=== PATIENT | female | born 1975 | race Caucasian/White ===

== ENCOUNTER 2017-01-27 10:49 | Emergency (ER) | payer BC, OTHER ==
[2017-01-27] MEDS ORDERED: OXYCODONE-ACETAMINOPHEN 5-325 MG TABLET PO ONE (11:03)
[2017-01-27] MEDS ORDERED: PROMETHAZINE HCL 25 MG TABLET PO ONE (11:03)
--- NOTE | 2017-01-27 11:06 | ER Document Report ---
ED Medical Screen (RME) - General Chief Complaint: Headache Stated Complaint: HEAD PAIN Notes: Patient is complaining of a severe headache that began about 5:30 PM last evening. She says that she was exercising when the pain began suddenly. Her headache is all over her entire head. It eased off some during the early night hours but came back around 3 AM and has been severe ever since. She's been nauseated but not vomiting. No fevers. No loss of consciousness or neurologic symptoms. Patient is tearful throughout the initial triage. PMH: Hypothyroidism. No history of headaches. TRAVEL OUTSIDE OF THE [place] IN LAST 30 DAYS: No - Related Data Allergies/Adverse Reactions: No Known Allergies Allergy (Verified 01/27/17 10:53) Past Medical History Endocrine Medical History: Reports: Hx Hypothyroidism Renal/ Medical History: Denies: Hx Peritoneal Dialysis Physical Exam - Vital signs Vitals: Temp Pulse BP Pulse Ox 98.3 F 78 150/86 H 100 01/27/17 10:54 01/27/17 10:54 01/27/17 10:54 01/27/17 10:54 Course - Vital Signs Vital signs: Temp Pulse Resp BP Pulse Ox 98.3 F 78 150/86 H 100 01/27/17 10:54 01/27/17 10:54 01/27/17 10:54 01/27/17 10:54
[2017-01-27] MEDS ORDERED: NORMAL SALINE 1000 ML 1,000 ML IV ONE ×2 (11:14→13:09)
[2017-01-27 11:51] LABS: ABSOLUTE LYMPHOCYTES (AUTO) 1.6 10^3/uL (0.5-4.7); ABSOLUTE MONOCYTES (AUTO) 0.3 10^3/uL (0.1-1.4); ABSOLUTE NEUT (AUTO) 3.2 10^3/uL (1.7-8.2); BASOPHILS % (AUTO) 0.4 % (0-2); EOSINOPHILS % (AUTO) 0.6 % (0-6); HEMOGLOBIN 13.1 g/dL (12.0-15.5); HGB HCT DIFFERENCE 0.3; LYMPHOCYTES % (AUTO) 30.4 % (13-45); MEAN CORPUSCULAR HEMOGLOBIN 27.6 pg (27.0-33.4); MEAN CORPUSCULAR HGB CONC 33.7 g/dL (32.0-36.0); MEAN CORPUSCULAR VOLUME 82 fl (80-97); MONOCYTES % (AUTO) 6.7 % (3-13); RED BLOOD COUNT 4.76 10^6/uL (3.72-5.28); RED CELL DISTRIBUTION WIDTH 14.7 % (11.5-14.0); SEGMENTED NEUTROPHILS % (AUTO) 61.9 % (42-78); WHITE BLOOD COUNT 5.2 10^3/uL (4.0-10.5)
[2017-01-27] MEDS ORDERED: LIDOCAINE 1% INJ-PF (10 MG/ML) 30 ML SDV INJ ONE (11:54)
[2017-01-27 11:59] LABS: PROTHROMBIN TIME 12.3 SEC (11.4-15.4)
[2017-01-27 12:00] LABS: PARTIAL THROMBOPLASTIN TIME 28.4 SEC (23.5-35.8)
[2017-01-27] MEDS ORDERED: ONDANSETRON HCL INJ/PF 4 MG/2 ML SDV IV ONE (12:09)
[2017-01-27] MEDS ORDERED: PROCHLORPERAZINE EDISYLATE INJ 10 MG/2 ML VIAL IV ONE (12:09)
[2017-01-27 12:15] LABS: ANION GAP 15 (5-19); BLOOD UREA NITROGEN 15 mg/dL (7-20); CALCIUM 9.4 mg/dL (8.4-10.2); CARBON DIOXIDE 23 mmol/L (22-30); CHLORIDE 106 mmol/L (98-107); CREATININE RESULT 0.69 mg/dL (0.52-1.25); GLUCOSE 97 mg/dL (75-110); POTASSIUM 4.1 mmol/L (3.6-5.0); SODIUM 143.8 mmol/L (137-145)
[2017-01-27 13:51] LABS: GLUCOSE,CSF 60 mg/dL (40-70)
[2017-01-27 14:09] LABS: APPEARANCE ALL TUBES CLOUDY
[2017-01-27 14:10] LABS: RBC DILUENT USED SALINE; RBC DILUTION FACTOR 51; RBC SIDE 1 194; RBC SIDE 2 186; TOTAL RBC SQUARES COUNTED 25
[2017-01-27 14:11] LABS: WHITE BLOOD CELL,CSF 292 /uL (0-5)
[2017-01-27 14:33] LABS: APPEARANCE ALL TUBES CLOUDY; RBC SIDE 1 115
[2017-01-27 14:34] LABS: RBC DILUENT USED SALINE; RBC DILUTION FACTOR 51; RBC SIDE 2 109; TOTAL RBC SQUARES COUNTED 25; WHITE BLOOD CELL,CSF 117 /uL (0-5)
[2017-01-27] MEDS ORDERED: LEVETIRACETAM 1000 MG/NACL-ISO 100 ML IV ONE (14:54)
--- NOTE | 2017-01-27 15:11 | ER Document Report ---
ED General - General Chief Complaint: Headache Stated Complaint: HEAD PAIN TRAVEL OUTSIDE OF THE [place] IN LAST 30 DAYS: No - Related Data Allergies/Adverse Reactions: No Known Allergies Allergy (Verified 01/27/17 10:53) Home Medications: Current Home Medications Etonogestrel/Ethinyl Estradiol [Nuvaring Vaginal Ring] 1 each VG ASDIR PRN 01/27 [History] Levothyroxine Sodium [Levothyroxine Sodium] 1 tab PO DAILY 01/27/17 [History] Past Medical History - Social History Smoking Status: Never Smoker Chew tobacco use (# tins/day): No Frequency of alcohol use: None Drug Abuse: None Family History: Reviewed & Not Pertinent Patient has suicidal ideation: No Patient has homicidal ideation: No Endocrine Medical History: Reports: Hx Hypothyroidism Renal/ Medical History: Denies: Hx Peritoneal Dialysis Surgical Hx: Negative Physical Exam - Vital signs Vitals: Temp Pulse BP Pulse Ox 98.3 F 78 150/86 H 100 01/27/17 10:54 01/27/17 10:54 01/27/17 10:54 01/27/17 10:54 Course - Vital Signs Vital signs: Temp Pulse Resp BP Pulse Ox 98.3 F 69 15 139/80 H 99 01/27/17 10:54 01/27/17 11:25 01/27/17 14:01 01/27/17 14:01 01/27/17 14:01 - Laboratory Result Diagrams: 01/27/17 11:30 01/27/17 11:30 Laboratory results interpreted by me: 01/27/17 01/27/17 01/27/17 11:30 13:10 13:10 RDW 14.7 H CSF WBC 292 H 117 H CSF RBC 78257 H 63657 H CSF Total Protein 01/27/17 13:10 RDW CSF WBC CSF RBC CSF Total Protein 138 H Discharge - Discharge Clinical Impression: acute subarachnoid bleed
--- NOTE | 2017-01-27 15:19 | ER Document Report ---
ED General - General Chief Complaint: Headache Stated Complaint: HEAD PAIN TRAVEL OUTSIDE OF THE [place] IN LAST 30 DAYS: No - HPI Patient complains to provider of: headache Notes: Patient coming in today after having a headache day prior to arrival. Patient states she was working out what she felt explosion her head. Patient states pain was better with Tylenol and did go home woke up this morning with acute pain states worse headache she is red and life no diagnoses of headaches or migraines in the past. Patient states pain is exacerbated with bending over pain does ready down her neck. Denies any trauma patient denies any blood any medications or any other past medical history patient states she takes no medications at all. States she is having photophobia mild nausea no vomiting no diarrhea. Patient was able to drive herself to the ER. - Related Data Allergies/Adverse Reactions: No Known Allergies Allergy (Verified 01/27/17 10:53) Home Medications: Current Home Medications Etonogestrel/Ethinyl Estradiol [Nuvaring Vaginal Ring] 1 each VG ASDIR PRN 01/27 [History] Levothyroxine Sodium [Levothyroxine Sodium] 1 tab PO DAILY 01/27/17 [History] Past Medical History - Social History Smoking Status: Never Smoker Chew tobacco use (# tins/day): No Frequency of alcohol use: None Drug Abuse: None Family History: Reviewed & Not Pertinent Patient has suicidal ideation: No Patient has homicidal ideation: No Endocrine Medical History: Reports: Hx Hypothyroidism Renal/ Medical History: Denies: Hx Peritoneal Dialysis Surgical Hx: Negative Review of Systems - Review of Systems Constitutional: No symptoms reported EENT: No symptoms reported Cardiovascular: No symptoms reported Respiratory: No symptoms reported Gastrointestinal: No symptoms reported Genitourinary: No symptoms reported Female Genitourinary: No symptoms reported Musculoskeletal: No symptoms reported Skin: No symptoms reported Hematologic/Lymphatic: No symptoms reported Neurological/Psychological: Headaches -: Yes All other systems reviewed and negative Physical Exam - Vital signs Vitals: Temp Pulse BP Pulse Ox 98.3 F 78 150/86 H 100 01/27/17 10:54 01/27/17 10:54 01/27/17 10:54 01/27/17 10:54 Interpretation: Normal - General General appearance: Appears well, Alert - HEENT Head: Normocephalic, Atraumatic Eyes: Normal Conjunctiva: Normal Cornea: Normal Extraocular movements intact: Yes Eyelashes: Normal Pupils: PERRL Ears: Normal External canal: Normal Tympanic membrane: Normal Sinus: Normal Nasal: Normal Pharynx: Normal Neck: Normal - Respiratory Respiratory status: No respiratory distress Chest status: Nontender Breath sounds: Normal Chest palpation: Normal - Cardiovascular Rhythm: Regular Heart sounds: Normal auscultation Murmur: No - Abdominal Inspection: Normal Distension: No distension Bowel sounds: Normal Tenderness: Nontender Organomegaly: No organomegaly - Back Back: Normal, Nontender - Extremities General upper extremity: Normal inspection, Nontender, Normal color, Normal ROM , Normal temperature General lower extremity: Normal inspection, Nontender, Normal color, Normal ROM , Normal temperature, Normal weight bearing. No: Ross's sign - Neurological Neuro grossly intact: Yes Cognition: Normal Orientation: AAOx4 Dingess Coma Scale Eye Opening: Spontaneous Dingess Coma Scale Verbal: Oriented Elyse Coma Scale Motor: Obeys Commands Elyse Coma Scale Total: 15 Speech: Normal Motor strength normal: LUE, RUE, LLE, RLE Sensory: Normal - Psychological Associated symptoms: Normal affect, Normal mood - Skin Skin Temperature: Warm Skin Moisture: Dry Skin Color: Normal Course - Re-evaluation Re-evalutation: 01/27/17 15:16 Patient presents concerning for subarachnoid hemorrhage. Initial CT scan noncontrast was negative. Patient underwent a lumbar puncture the fluid returned red tinged and never did clear. After discovering this before the cell counts returned I did have the patient undergo a CTA under the guidance of our radiology team. Acute subarachnoid blood was seen on CAT scan however there is no signs of aneurysm or stenosis. Patient remained a symptomatic I did contact [facility] and spoke with the neurosurgery team Dr Jones who accepted the patient in transfer. Recommend keep blood pressure low systolic of 140. Will give small dose of labetalol. Also recommends 1 g of Keppra. Otherwise patient remains GCS 15 a no times for with no neurological deficits. We will attempt to fly the patient to [facility] - Vital Signs Vital signs: Temp Pulse Resp BP Pulse Ox 98.3 F 69 15 139/80 H 99 01/27/17 10:54 01/27/17 11:25 01/27/17 14:01 01/27/17 14:01 01/27/17 14:01 - Laboratory Result Diagrams: 01/27/17 11:30 01/27/17 11:30 Laboratory results interpreted by me: 01/27/17 01/27/17 01/27/17 11:30 13:10 13:10 RDW 14.7 H CSF WBC 292 H 117 H CSF RBC 70716 H 77435 H CSF Total Protein 01/27/17 13:10 RDW CSF WBC CSF RBC CSF Total Protein 138 H Procedures - Lumbar Puncture Lumbar puncture Consent obtained: Yes Lumbar puncture pre-procedure: Sterile PPE donned, Betadine prep applied, Chloraprep applied, Sterile drapes applied Patient position: Sitting Needle size: 22 Lumbar puncture location: l4/l5 Anesthetic type: 1% Lidocaine mL's of anesthetic: 2 Amount/type of drainage: bloody CSF Number of attempts: 1 Complications: No Critical Care Note - Critical Care Note Total time excluding time spent on procedures (mins): 90 Comments: Time spent multiple evaluations patient with concerning headache symptoms. Time excludes all procedures. Time also spent transferring patient discussing his case with specialty team Discharge - Discharge Clinical Impression: acute subarachnoid bleed Condition: Serious Disposition: [facility]
[2017-01-27] MEDS ORDERED: LABETALOL HCL INJ 20 MG/4 ML DISP.SYRIN IV ONE (15:21)
[2017-01-27 15:51] VITALS: BP 137/89
== END 2017-01-27 16:16 | disposition short-term general hospital (02) ==
LOC: ER 10:49
PROC: 009U3ZX Drainage of Spinal Canal, Percutaneous Approach, Diagnostic (ICD-10-PCS; principal; 2017-01-27)
DX: I60.9 Nontraumatic subarachnoid hemorrhage, unspecified (principal); R51 Headache; Z79.899 Other long term (current) drug therapy; M54.2 Cervicalgia
CPT/HCPCS: 99291; 99292; 96361; 96375; 96365; 36415; 87070; 87205; 84703; 85025; 85610; 85730; 89050; 82945; 84157; 80048; 70450; 70496; 62270; J0780; J2405; J7030; J1953

== ENCOUNTER → 2017-03-01 | Outpatient (CLI) | payer BC ==
--- NOTE | 2017-03-01 12:43 | WOMENS IMAGING REPORT ---
EXAM DESCRIPTION: BILAT SCREENING MAMMO W/CAD COMPLETED DATE/TIME: 03/01/2017 9:45 am REASON FOR STUDY: Z12.39, ROUTINE SCREENING MAMMO Z12.39 ENCOUNTER FOR [facility] SCREENING FOR MALIGNANT NEOPLASM OF COMPARISON: 02/28/2016 and 02/11/2015. TECHNIQUE: Standard craniocaudal and mediolateral oblique views of each breast recorded using digita l acquisition. LIMITATIONS: None. FINDINGS: No masses, calcifications or architectural distortion. No areas of suspicion. Read with the assistance of CAD. .[facility] - R2 Cenova Version 1.3 .[facility] Imaging - R2 Cenova Version 1.3 .[facility] Imaging - R2 Cenova Version 2.4 .[facility] - R2 Cenova Version 2.4 .[facility] - R2 Associate Artistic Director Version 9.2 IMPRESSION: NORMAL MAMMOGRAM. BIRADS 1. BREAST DENSITY: b. There are scattered areas of fibroglandular density. BIRAD: 1 NEGATIVE RECOMMENDATION: ROUTINE SCREENING COMMENT: The patient has been notified of the results by letter per MQSA requirements. Additional no tification policies are in place for contacting patient with suspicious or incomplete findings. Quality ID #[id number]: The [employer] recommends an annual screening mammogram for women aged 40 years or over. This facility utilizes a reminder system to ensure that all patients receive reminder letters, and/or direct phone calls for appointments. This includes reminders for routine scr eening mammograms, diagnostic mammograms, or other Breast Imaging Interventions when appropriate. Th is patient will be placed in the appropriate reminder system. The [employer] (ACR) has developed recommendations for screening MRI of the breast s in certain patient populations, to be used in conjunction with mammography. Breast MRI surveillanc e may be appropriate for women with more than 20% lifetime risk of developing breast cancer as deter mined by genetic testing, significant family history of the disease, or history of mantle radiation f or Hodgkins Disease. ACR Practice Guidelines 2008. TECHNICAL DOCUMENTATION: FINDING NUMBER: (1) ASSESSMENT: (1) JOB ID: [id number] [employer]- All Rights Reserved
== END ==
LOC: WI 09:00
PROVIDERS: ATTEND Family Medicine
DX: Z12.31 Encounter for screening mammogram for malignant neoplasm of breast (principal)
CPT/HCPCS: 77067; G0202

== ENCOUNTER → 2018-05-09 | Outpatient (CLI) | payer BC ==
--- NOTE | 2018-05-09 12:57 | WOMENS IMAGING REPORT ---
EXAM DESCRIPTION: BILAT SCREENING MAMMO W/CAD COMPLETED DATE/TIME: 05/09/2018 8:39 am REASON FOR STUDY: ROUTINE BILATERAL SCREENING;Z12.31 Z12.31 ENCNTR SCREEN MAMMOGRAM FOR MALIGNANT N EOPLASM OF [place] COMPARISON: 03/01/2017 and 02/28/2016. TECHNIQUE: Standard craniocaudal and mediolateral oblique views of each breast recorded using digita l acquisition. LIMITATIONS: None. FINDINGS: No masses, calcifications or architectural distortion. No areas of suspicion. Read with the assistance of CAD. .[facility] - R2 Cenova Version 1.3 .[facility] Imaging - R2 Cenova Version 1.3 .[facility] Imaging - R2 Cenova Version 2.4 .[facility] - R2 Cenova Version 2.4 .[facility] - R2 Family Centered Specialist Version 9.2 IMPRESSION: NORMAL MAMMOGRAM. BIRADS 1. BREAST DENSITY: b. There are scattered areas of fibroglandular density. BIRAD: 1 NEGATIVE RECOMMENDATION: ROUTINE SCREENING COMMENT: The patient has been notified of the results by letter per MQSA requirements. Additional no tification policies are in place for contacting patient with suspicious or incomplete findings. Quality ID #[id number]: [employer] recommends an annual screening mammogram for women aged 40 years or over. This facility utilizes a reminder system to ensure that all patients receive reminder letters, and/or direct phone calls for appointments. This includes reminders for routine scr eening mammograms, diagnostic mammograms, or other Breast Imaging Interventions when appropriate. Th is patient will be placed in the appropriate reminder system. The [employer] (ACR) has developed recommendations for screening MRI of the breast s in certain patient populations, to be used in conjunction with mammography. Breast MRI surveillanc e may be appropriate for women with more than 20% lifetime risk of developing breast cancer as deter mined by genetic testing, significant family history of the disease, or history of mantle radiation f or Hodgkins Disease. ACR Practice Guidelines 2008. TECHNICAL DOCUMENTATION: FINDING NUMBER: (1) ASSESSMENT: (1) JOB ID: [id number] [employer]- All Rights Reserved Reading location - IP/workstation name: [email or web address]
== END ==
LOC: WI 08:06
PROVIDERS: ATTEND Physician Assistant Medical
DX: Z12.31 Encounter for screening mammogram for malignant neoplasm of breast (principal)
CPT/HCPCS: 77067

== ENCOUNTER → 2020-05-17 | Outpatient (CLI) | payer BC ==
--- NOTE | 2020-05-20 16:43 | WOMENS IMAGING REPORT ---
EXAM DESCRIPTION: BILAT SCREENING MAMMO W/CAD IMAGES COMPLETED DATE/TIME: 05/17/2020 3:22 pm REASON FOR STUDY: Z12.31 ENCNTR SCREEN MAMMOGRAM FOR MALIGNANT NEOPLASM OF BREAST Z12.31 ENCNTR SCR EEN MAMMOGRAM FOR MALIGNANT NEOPLASM OF [place] COMPARISON: 2016 to 2018 EXAM PARAMETERS: Standard craniocaudal and mediolateral oblique views of each breast recorded using digital acquisition. Read with the assistance of CAD. .COUNT INCLUDES THE [facility] - Bunkr Pad Extractor Tender Version 9.2 LIMITATIONS: None. FINDINGS: No suspicious masses, suspicious calcifications or architectural distortion. No areas of c oncern. IMPRESSION: NEGATIVE MAMMOGRAM. BIRADS 1 BREAST DENSITY: b. There are scattered areas of fibroglandular density. BIRAD: ASSESSMENT: 1 NEGATIVE RECOMMENDATION: ROUTINE SCREENING COMMENT: The patient has been notified of the results by letter per MQSA requirements. Additional no tification policies are in place for contacting patient with suspicious or incomplete findings. Quality ID #[id number]: The [employer] recommends an annual screening mammogram for women aged 40 years or over. This facility utilizes a reminder system to ensure that all patients receive reminder letters, and/or direct phone calls for appointments. This includes reminders for routine scr eening mammograms, diagnostic mammograms, or other Breast Imaging Interventions when appropriate. Th is patient will be placed in the appropriate reminder system. TECHNICAL DOCUMENTATION: FINDING NUMBER: (1) ASSESSMENT: (1) JOB ID: [id number] [employer]- All Rights Reserved Reading location - IP/workstation name: [email or web address]
== END ==
LOC: WI 14:53
PROVIDERS: ATTEND Physician Assistant Medical
DX: Z12.31 Encounter for screening mammogram for malignant neoplasm of breast (principal)
CPT/HCPCS: 77067